=== PATIENT | female | born 1980 | race Two or more races ===

== ENCOUNTER 2016-11-28 13:36 | Emergency (ER) | payer OTHER ==
--- NOTE | 2016-11-28 14:05 | EDM.PDOC ---
ED HPI Trauma - General Chief Complaint: Lower Extremity Injury/Pain Stated Complaint: PT WOULD LIKE TO GET CHECK Time Seen by Provider: 11/28/16 14:03 Source: Reports: Patient History Limitations: Reports: No limitations - History of Present Illness INITIAL COMMENTS - FREE TEXT/NARRATIVE: HISTORY AND PHYSICAL: [36-year-old female who has history of PE x3 postsurgical. Presents with right groin pain. She is concerned that there is a blood clot. There is tingling to her foot.] History of Present Illness: [] Patient 3 days ago noted some tingling and some numbness to her right foot and leg Today he noticed pain to the groin and a small "knot" Review of Systems: As per history of present illness and below otherwise all systems reviewed and negative. Past medical history: As per history of present illness and as reviewed below otherwise noncontributory. Surgical history: As per history of present illness and as reviewed below otherwise noncontributory. Social history: No reported history of drug or alcohol abuse. Family history: As per history of present illness and as reviewed below otherwise noncontributory. Physical exam: Alert oriented female does not look in acute distress HEENT: Atraumatic, normocehpalic, pupils reactive, negative for conjunctival pallor or scleral icterus, mucous membranes moist, throat clear, neck supple, nontender, trachea midline. Lungs: Clear to auscultation slightly coarse, breath sounds equal bilaterally, chest non tender. Heart: S1S2, regular, negative for clicks, rubs, or JVD. Abdomen: Soft, nondistended, nontender. Negative for masses or hepatossplenmegaly. Negative for costovertebral tenderness. Pelvis: Stable nontender. Genitourinary: Deferred. Rectal: Deferred Extremities: Atraumatic, pain to right groin. Palpable pulse to right foot Neurovascular unremarkable. Neuro: Awake, alert, oriented. Cranial nerves II through XII unremarkable. Cerebellum unremarkable. Motor and sensory unremarkable throughout. Exam nonfocal. Diagnostics: [Ultrasound right and left lower extremities] Therapeutics: [] Impression: [cystic tissue] Plan: [send patient home to follow up with PCP No sign of Blood clots were noted] Definitive disposition and diagnosis as appropriate pending reevaluation and review of above. 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 laproscopic adhesion removal Musculoskeletal History: Reports: None Neurological History: Reports: None Psychiatric History: Reports: None Endocrine/Metabolic History: Reports: None Hematologic History: Reports: None Immunologic History: Reports: None Oncologic (Cancer) History: Reports: None Dermatologic History: Reports: None - Infectious Disease History Infectious Disease History: Reports: None - Past Surgical History Head Surgeries/Procedures: Reports: None Female Surgical History: Reports: section Social & Family History - Family History Family Medical History: Noncontributory - Tobacco Use Smoking Status *Q: Current Every Day Smoker Years of Tobacco use: 10 Packs/Tins Daily: 0.5 Second Hand Smoke Exposure: Yes - Caffeine Use Caffeine Use: Reports: Coffee, Soda Caffeine Use Comment: 5+/day - Recreational Drug Use Recreational Drug Use: No Review of Systems - Review of Systems Review Of Systems: ROS reveals no pertinent complaints other than HPI. Trauma Exam - Physical Exam Exam: See Below (see dictation) Course - Vital Signs Last Recorded V/S: Last Vital Signs Temp 36.8 C 11/28/16 13:58 Pulse 86 11/28/16 15:52 Resp 16 11/28/16 15:52 BP 111/75 11/28/16 15:52 Pulse Ox 96 11/28/16 15:52 - Orders/Labs/Meds Orders: Active Orders 24 hr Category Date Time Status Venous Doppler Lwr Ext Bi [US] Stat Exams 11/28/16 14:03 Taken Labs: Laboratory Tests 11/28/16 Range/Units 13:55 Urine Color YELLOW Urine Appearance SLT CLOUDY Urine pH 6.5 (5.0-8.0) Ur Specific [place] <= 1.005 (1.001-1.035) Urine Protein NEGATIVE (NEGATIVE) mg/dL Urine Glucose (UA) NEGATIVE (NEGATIVE) mg/dL Urine Ketones NEGATIVE (NEGATIVE) mg/dL Urine Occult Blood NEGATIVE (NEGATIVE) Urine Nitrite NEGATIVE (NEGATIVE) Urine Bilirubin NEGATIVE (NEGATIVE) Urine Urobilinogen 0.2 (<2.0) EU/dL Ur Leukocyte Esterase NEGATIVE (NEGATIVE) Urine RBC 0-1 (0-2/HPF) Urine WBC 0-2 (0-5/HPF) Ur Epithelial Cells FEW (NONE-FEW) Urine Bacteria FEW (NEGATIVE) Departure - Departure Time of Disposition: 16:07 Disposition: Home, Self-Care 01 Condition: good Clinical Impression: Cyst Forms: ED Department Discharge Additional Instructions: The following information is given to patients seen in the emergency department who are being discharged to home. This information is to outline your options for follow-up care. We provide all patients seen in our emergency department with a follow-up referral. The need for follow-up, as well as the timing and circumstances, are variable depending upon the specifics of your emergency department visit. If you don't have a primary care physician on staff, we will provide you with a referral. We always advise you to contact your personal physician following an emergency department visit to inform them of the circumstance of the visit and for follow-up with them and/or the need for any referrals to a consulting specialist. The emergency department will also refer you to a specialist when appropriate. This referral assures that you have the opportunity for followup care with a specialist. All of these measure are taken in an effort to provide you with optimal care, which includes your followup. Under all circumstances we always encourage you to contact your private physician who remains a resource for coordinating your care. When calling for followup care, please make the office aware that this follow-up is from your recent emergency room visit. If for any reason you are refused follow-up, please contact the [facility] emergency department at and asked to speak to the emergency department charge nurse. - My Orders Last 24 Hours: My Active Orders 11/28/16 14:03 Venous Doppler Lwr Ext Bi [US] Stat - Assessment/Plan Last 24 Hours: My Active Orders 11/28/16 14:03 Venous Doppler Lwr Ext Bi [US] Stat
[2016-11-28 15:53] VITALS: BP 111/75
--- NOTE | 2016-11-30 17:08 | US ---
EXAM DATE: 11/28/16 PATIENT'S AGE: 36 Patient: ALBIN LAURENT Facility: [place], [place] Site . Site : 1980 Study: US Extremity Bilateral [id number]/28/2017 3:47:56 PM Ordering Physician: Doctor Bush Final Report: INDICATION: Pain in right leg, bump. History of prior lung clots 7 years ago. TECHNIQUE: : Ultrasound venous duplex lower extremity bilateral. Compression venous exam was performed using land-scale, color Doppler, and spectral Doppler imaging. COMPARISON: None FINDINGS: Sonographic imaging demonstrates the common femoral, deep femoral, superficial femoral, popliteal, posterior tibial and greater saphenous veins to be fully compressible with normal color Doppler blood flow in both lower extremities. Round hypoechoic area at area of interest, superior right thigh region. No internal vascularity or solid component. Round hypoechoic area measures 0.5 x 0.6 x 0.6 centimeters. IMPRESSION: 1. No evidence of right or left lower extremity DVT. 2. Small cystic focus at area of interest, superior right thigh at level of common femoral vein. Maximal dimension at 0.6 centimeters. Findings are nonspecific. Cystic focus does not communicate with the overlying skin surface. Sonographic findings are not typical for small lymph node. Dictated by Mino Laureaon MD @ 11/28/2016 4:00:59 PM Dictated by: Mino Laureano MD @ 11/28/2016 16:01:07 (Electronic Signature) Report Signed by Proxy. NAYE
== END 2016-11-28 16:17 | disposition home or self-care (01) ==
LOC: MW.ED 13:36
DX: M67.48 Ganglion, other site (principal); F17.210 Nicotine dependence, cigarettes, uncomplicated
CPT/HCPCS: 81001; 93970; 93970-26; 96372; 99282; 99283-25

== ENCOUNTER 2017-03-28 17:14 | Emergency (ER) | payer OTHER ==
--- NOTE | 2017-03-28 17:33 | EDM.PDOC ---
ED HPI GENERAL MEDICAL PROBLEM - General Stated Complaint: PAIN LT WRIST Time Seen by Provider: 03/28/17 17:27 - History of Present Illness INITIAL COMMENTS - FREE TEXT/NARRATIVE: HISTORY AND PHYSICAL: History of present illness: Patient 36-year-old female presents with concern of acute left wrist injury described approximately 1 week prior in [place] she was x-rayed then was told that there is no obvious fracture but the repeat x-rays and reevaluation may be necessary regarding the location of the pain and injury. She denies any other trauma or concern Review of systems: As per history of present illness and below otherwise all systems reviewed and negative. Past medical history: As per history of present illness and as reviewed below otherwise noncontributory. Surgical history: As per history of present illness and as reviewed below otherwise noncontributory. Social history: No reported history of drug or alcohol abuse. Family history: As per history of present illness and as reviewed below otherwise noncontributory. Physical exam: HEENT: Atraumatic, normocephalic, pupils reactive, negative for conjunctival pallor or scleral icterus, mucous membranes moist, throat clear, neck supple, nontender, trachea midline. Lungs: Clear to auscultation, breath sounds equal bilaterally, chest nontender. Heart: S1S2, regular, negative for clicks, rubs, or JVD. Abdomen: Soft, nondistended, nontender. Negative for masses or hepatosplenomegaly. Negative for costovertebral tenderness. Pelvis: Stable nontender. Genitourinary: Deferred. Rectal: Deferred. Extremities: Patient has pain over the distal aspect of the radius and snuffbox tenderness she has limited range of motion secondary pain CMS neurovascular exam are limited but grossly unremarkable Neuro: Awake, alert, oriented. Cranial nerves II through XII unremarkable. Cerebellum unremarkable. Motor and sensory unremarkable throughout. Exam nonfocal. Diagnostics: Tray left wrist Therapeutics: Velcro splint Impression: #1 left wrist injury rule out occult fracture Definitive disposition and diagnosis as appropriate pending reevaluation and review of above. - Related Data Allergies Allergy/AdvReac Type Severity Reaction Status Date / Time Penicillins Allergy Airway Verified 11/28/16 13:58 Tightness Home Meds: Home Meds . 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 laproscopic adhesion removal Musculoskeletal History: Reports: None Neurological History: Reports: None Psychiatric History: Reports: None Endocrine/Metabolic History: Reports: None Hematologic History: Reports: None Immunologic History: Reports: None Oncologic (Cancer) History: Reports: None Dermatologic History: Reports: None - Infectious Disease History Infectious Disease History: Reports: None - Past Surgical History Female Surgical History: Reports: Section Social & Family History - Family History Family Medical History: Noncontributory - Tobacco Use Smoking Status *Q: Current Every Day Smoker Years of Tobacco use: 10 Packs/Tins Daily: 0.5 Second Hand Smoke Exposure: Yes - Caffeine Use Caffeine Use: Reports: Coffee, Soda Caffeine Use Comment: 5+/day - Recreational Drug Use Recreational Drug Use: No ED ROS GENERAL - Review of Systems Review Of Systems: ROS reveals no pertinent complaints other than HPI. ED EXAM, GENERAL - Physical Exam Exam: See Below (See dictation) Course - Orders/Labs/Meds Orders: Active Orders 24 hr Category Date Time Status Wrist 2V Lt [CR] Stat Exams 03/28/17 17:30 Ordered Departure - Departure Time of Disposition: 17:32 Disposition: Home, Self-Care 01 Condition: Good Clinical Impression: Wrist injury - Discharge Information Referrals: PCP,None [Primary Care Provider] - Additional Instructions: The following information is given to patients seen in the emergency department who are being discharged to home. This information is to outline your options for follow-up care. We provide all patients seen in our emergency department with a follow-up referral. The need for follow-up, as well as the timing and circumstances, are variable depending upon the specifics of your emergency department visit. If you don't have a primary care physician on staff, we will provide you with a referral. We always advise you to contact your personal physician following an emergency department visit to inform them of the circumstance of the visit and for follow-up with them and/or the need for any referrals to a consulting specialist. The emergency department will also refer you to a specialist when appropriate. This referral assures that you have the opportunity for followup care with a specialist. All of these measure are taken in an effort to provide you with optimal care, which includes your followup. Under all circumstances we always encourage you to contact your private physician who remains a resource for coordinating your care. When calling for followup care, please make the office aware that this follow-up is from your recent emergency room visit. If for any reason you are refused follow-up, please contact the [facility] emergency department at and asked to speak to the emergency department charge nurse. [facility] - Orth[facility] Professional [address], [address] [place] [address] Splint as directed Motrin/Tylenol as directed call to schedule appointment with orthopedic surgery above as discussed return as needed as discussed - My Orders Last 24 Hours: My Active Orders 03/28/17 17:30 Wrist 2V Lt [CR] Stat - Assessment/Plan Last 24 Hours: My Active Orders 03/28/17 17:30 Wrist 2V Lt [CR] Stat
[2017-03-28 18:57] VITALS: BP 111/74
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
== END 2017-03-28 18:53 | disposition home or self-care (01) ==
LOC: MW.ED 17:14
DX: S69.92XA Unspecified injury of left wrist, hand and finger(s), initial encounter (principal); F17.210 Nicotine dependence, cigarettes, uncomplicated; Z88.0 Allergy status to penicillin; X58.XXXA Exposure to other specified factors, initial encounter
CPT/HCPCS: 73100-26-LT; 73100-LT; 99283